=== PATIENT | female | born 1940 | race Caucasian/White ===

== ENCOUNTER 2016-09-06 22:36 | Emergency (ER) | payer OTHER ==
[2016-09-06 23:45] VITALS: BP 170/85
== END 2016-09-07 | disposition home or self-care (01) ==
LOC: ED 22:36
DX: B02.9 Zoster without complications (principal); E78.5 Hyperlipidemia, unspecified; E11.9 Type 2 diabetes mellitus without complications; I10 Essential (primary) hypertension; E03.9 Hypothyroidism, unspecified; Z79.899 Other long term (current) drug therapy; Z79.84 Long term (current) use of oral hypoglycemic drugs; Z79.82 Long term (current) use of aspirin